=== PATIENT | male | born 1980 | race Caucasian/White ===

== ENCOUNTER 2018-08-26 13:02 | Emergency (ER) | payer SELFPAY ==
[2018-08-26] MEDS ORDERED: Sulfamethoxazole/Trimethoprim 800-160 MG Tab PO ONE (13:07)
[2018-08-26 13:15] VITALS: BP 145/102
--- NOTE | 2018-08-26 13:21 | EDM.PDOC ---
ED HPI GENERAL MEDICAL PROBLEM - General Chief Complaint: General Stated Complaint: SWELLING ON CHEEK Time Seen by Provider: 08/26/18 13:10 Source of Information: Reports: Patient History Limitations: Reports: No Limitations - History of Present Illness INITIAL COMMENTS - FREE TEXT/NARRATIVE: HISTORY AND PHYSICAL: History of present illness: Patient is a 37-year-old male who is brought to the emergency room by law enforcement for medical clearance. Patient is a meth amphetamine user and states that he does have multiple skin lesions which she routinely scratches and picks. Approximately one week ago he did get hit in the left lower jaw with a wrench. Since that time he has had some soft tissue swelling but more bothersome is a skin lesion to the area. He states if law enforcement had not brought him here he probably would not have had this evaluated. He offers no concerns or desire for evaluation Review of systems: As per history of present illness and below otherwise all systems reviewed and negative. Past medical history: As per history of present illness and as reviewed below otherwise noncontributory. Surgical history: As per history of present illness and as reviewed below otherwise noncontributory. Social history: See social history for further information Family history: As per history of present illness and as reviewed below otherwise noncontributory. Physical exam: General: Well-developed and well-nourished 37-year-old male. Alert and oriented. Nontoxic appearing and in no acute distress. HEENT: Mild soft tissue swelling noted to the left lower jaw normocephalic, pupils equal and reactive bilaterally, negative for conjunctival pallor or scleral icterus, mucous membranes moist, TMs normal bilaterally, throat clear, neck supple, nontender, trachea midline. No drooling or trismus noted. No meningeal signs. No hot potato voice noted. Lungs: Clear to auscultation, breath sounds equal bilaterally, chest nontender. Heart: S1S2, regular rate and rhythm without overt murmur Abdomen: Soft, nondistended, nontender. Negative for masses or hepatosplenomegaly. Negative for costovertebral tenderness. Pelvis: Stable nontender. Genitourinary: Deferred. Rectal: Deferred. Skin: Multiple sores throughout the body that are consistent with MRSA. There are various stages of healing as he states he does scratch and pick at these frequently. Otherwise skin is intact, warm, dry. No lesions or rashes noted. Extremities: Atraumatic, negative for cords or calf pain. Neurovascular unremarkable. Neuro: Awake, alert, oriented. Cranial nerves II through XII unremarkable. Cerebellum unremarkable. Motor and sensory unremarkable throughout. Exam nonfocal. Notes: Patient's blood pressure is elevated, she states he takes multiple medications for hypertension but has not taken in the past 2 days. Declines x-ray or any further workup. We will give him some Bactrim DS for the suspected MRSA lesions. Supportive care measures were reviewed and discussed. Voices understanding and is agreeable to plan of care. Denies any further questions or concerns at this time. Diagnostics: Declines Therapeutics: Bactrim DS Prescription: Bactrim DS Impression: Encounter for Medical Clearance History of drug abuse Plan: 1. Please stop using drugs 2. Keep the open sores on your skin clean and dry. Take the antibiotic as prescribed 3. Follow-up with your primary care provider as discussed. Return to the ED as needed and as discussed. Definitive disposition and diagnosis as appropriate pending reevaluation and review of above. left jaw Pain Score (Numeric/FACES): 8 - Related Data Allergies Allergy/AdvReac Type Severity Reaction Status Date / Time Penicillins Allergy Severe Hives Verified 12/21/14 04:26 MDT Home Meds: Home Meds Lovastatin 20 mg PO BEDTIME 02/21/14 [History] Lisinopril 20 mg PO DAILY 03/23/14 [History] FLUoxetine [PROzac] 20 mg PO DAILY 09/09/14 [History] Past Medical History - Past Health History Medical/Surgical History: Denies Medical/Surgical History - Past Surgical History Other Musculoskeletal Surgeries/Procedures:: back surgery ED ROS GENERAL - Review of Systems Review Of Systems: ROS reveals no pertinent complaints other than HPI. ED EXAM, GENERAL - Physical Exam Exam: See Below (See dictation) Course - Vital Signs Last Recorded V/S: Last Vital Signs Temp 97.5 F 08/26/18 13:07 Pulse 91 08/26/18 13:07 Resp 18 08/26/18 13:07 BP 145/102 H 08/26/18 13:07 Pulse Ox 98 08/26/18 13:07 - Orders/Labs/Meds Meds: Medications Discontinued Medications Generic Name Dose Route Start Last Admin Trade Name Freq PRN Reason Stop Dose Admin Trimethoprim/Sulfamethoxazole 1 tab 08/26/18 13:07 08/26/18 13:15 Septra Ds PO 08/26/18 13:08 1 tab ONETIME ONE Administration Departure - Departure Time of Disposition: 13:21 Disposition: Home, Self-Care 01 Clinical Impression: Encounter for medical screening examination, History of drug abuse - Discharge Information Referrals: PCP,Unknown [Primary Care Provider] - Forms: ED Department Discharge Additional Instructions: The following information is given to patients seen in the emergency department who are being discharged to home. This information is to outline your options for follow-up care. We provide all patients seen in our emergency department with a follow-up referral. The need for follow-up, as well as the timing and circumstances, are variable depending upon the specifics of your emergency department visit. If you don't have a primary care physician on staff, we will provide you with a referral. We always advise you to contact your personal physician following an emergency department visit to inform them of the circumstance of the visit and for follow-up with them and/or the need for any referrals to a consulting specialist. The emergency department will also refer you to a specialist when appropriate. This referral assures that you have the opportunity for follow-up care with a specialist. All of these measure are taken in an effort to provide you with optimal care, which includes your follow-up. Under all circumstances we always encourage you to contact your private physician who remains a resource for coordinating your care. When calling for follow-up care, please make the office aware that this follow-up is from your recent emergency room visit. If for any reason you are refused follow-up, please contact the [facility] Emergency Department at and asked to speak to the emergency department charge nurse. [facility] [address] [place] [id number] [address] 1. Please stop using drugs 2. Keep the open sores on your skin clean and dry. Take the antibiotic as prescribed 3. Follow-up with your primary care provider as discussed. Return to the ED as needed and as discussed.
== END 2018-08-26 13:37 | disposition home or self-care (01) ==
LOC: MW.ED 13:02
DX: F15.10 Other stimulant abuse, uncomplicated (principal); I10 Essential (primary) hypertension; R22.0 Localized swelling, mass and lump, head; Z02.89 Encounter for other administrative examinations; Z88.0 Allergy status to penicillin; Z79.899 Other long term (current) drug therapy
CPT/HCPCS: 99282; A9270